=== PATIENT | male | born 1970 ===

== ENCOUNTER 2023-03-24 05:48 | Outpatient (CLI) | payer OTHER ==
[~2023-03-24] VITALS: Ht 185.4 cm; Wt 93.0 kg
[2023-03-26] MEDS ORDERED: ACET-93 PO (13:21)
[2023-03-26] MEDS ORDERED: LISI10TA25 PO (13:21)
[2023-03-26] MEDS ORDERED: IBUP-2473 PO (13:21)
[2023-03-26] MEDS ORDERED: FAMO-356 PO (13:21)
[2023-03-26] MEDS ORDERED: ARIP10TA55 PO (13:21)
[2023-03-26] MEDS ORDERED: VILA20TA2 PO (13:21)
[2023-03-26] MEDS ORDERED: MODA100T27 PO (13:21)
== END 2023-03-26 13:25 | disposition home or self-care (01) ==
LOC: PREOP 05:48
PROVIDERS: ATTEND Surgery
DX: Z01.818 Encounter for other preprocedural examination (principal)